=== PATIENT | female | born 1990 | race Caucasian/White ===

== ENCOUNTER 2021-04-17 20:30 | Emergency (ER) | payer OTHER ==
[2021-04-17 20:55] VITALS: BMI 21.4
[2021-04-17] MEDS ORDERED: ACETAMINOPHEN 325 MG TABLET (FP) PO ONE (22:03)
[2021-04-17 22:12] LABS: EOS % 1.9 % (0-4.5); HEMATOCRIT 38.7 % (32.4-45.2); HEMOGLOBIN 13.3 GM/dL (10.7-15.3); LYMPH % 37.4 % (8-40); MCH 30.8 pg (25.7-33.7); MCHC 34.4 g/dl (32.0-36.0); MEAN CELL VOLUME 89.5 fl (80-96); MEAN PLT VOLUME 7.5 fl (7.5-11.1); MONO % 8.2 % (3.8-10.2); NEUT % 51.5 % (42.8-82.8); PLATELET COUNT 196 10^3/uL (134-434); RBC 4.32 M/mm3 (3.60-5.2); RDW 12.4 % (11.6-15.6)
[2021-04-17 22:20] LABS: INR 1.04 (0.83-1.09); PROTHROMBIN TIME (PATIENT) 12.6 SEC (9.7-13.0)
[2021-04-17 22:23] LABS: ACTIVATED PTT 32.8 SECONDS (25.2-36.5)
[2021-04-17] MEDS ORDERED: ACETAMINOPHEN 325 MG TABLET (FP) ONE (22:36)
[2021-04-17 22:41] LABS: ALBUMIN 3.9 g/dl (3.4-5.0); BLOOD UREA NITROGEN 9.3 mg/dL (7-18)
[2021-04-17 22:45] LABS: CREATININE 0.4 mg/dL (0.55-1.3)
[2021-04-17 22:46] LABS: BILIRUBIN,TOTAL 0.7 mg/dL (0.2-1)
[2021-04-17 22:59] LABS: TOT PROT 6.7 g/dl (6.4-8.2)
[2021-04-18 01:05] VITALS: BP 130/80; PULSE 60; TEMP 98.5
== END 2021-04-18 01:05 | disposition home or self-care (01) ==
LOC: JER 20:30
DX: L72.0 Epidermal cyst (principal); R10.2 Pelvic and perineal pain
CPT/HCPCS: 36415; 76830-TC; 80053; 83605; 84703; 85025; 85610; 85730; 86850; 86900; 86901; 99284-25